=== PATIENT | female | born 1965 ===

== ENCOUNTER 2018-08-04 10:13 | Outpatient (CLI) | payer MEDICAID | END 2018-08-04 10:14 | disposition home or self-care (01) | LOC: C.USIC 10:13 | DX: K30 Functional dyspepsia (principal) ==

== ENCOUNTER 2018-08-04 10:21 | Outpatient (CLI) | payer MEDICAID | END 2018-08-04 10:22 | disposition home or self-care (01) | LOC: C.DEXAIC 10:22 | DX: M85.88 Other specified disorders of bone density and structure, other site (principal) ==